=== PATIENT | female | born 1960 | race African-American/Black ===

== ENCOUNTER 2018-08-02 08:21 | Day surgery (SDC) | payer OTHER ==
[2018-07-27 15:57] VITALS: BMI 33.3
--- NOTE | 2018-08-02 08:09 | HP ---
History & Physical Update - History History: No Change - Physical Physical: No Change - Assessment Assessment: No Change - Plan Plan: No Change (No change in HP)
[~2018-08-02 08:21] MED LIST: IBUPROFEN 800 MG/8 ML IJ IVPB PRN
[2018-08-02 09:33] LABS: HEMATOCRIT 38.5 % (32.4-45.2); HEMOGLOBIN 12.4 GM/dL (10.7-15.3); MCH 27.6 pg (25.7-33.7); MCHC 32.2 g/dl (32.0-36.0); MEAN CELL VOLUME 85.7 fl (80-96); MEAN PLT VOLUME 7.8 fl (7.5-11.1); PLATELET COUNT 320 K/MM3 (134-434); RBC 4.49 M/mm3 (3.60-5.2); RDW 13.3 % (11.6-15.6); WHITE BLOOD COUNT 7.5 K/mm3 (4.0-10.0)
[2018-08-02] MEDS ORDERED: ceFAZolin SODIUM 1 GM VIAL IVPB ONE (11:49)
[2018-08-02] MEDS ORDERED: ONDANSETRON 4 MG/2 ML VIAL IVPUSH PRN (12:15)
[2018-08-02] MEDS ORDERED: ONDANSETRON 4 MG/2 ML VIAL ONE (12:53)
--- NOTE | 2018-08-02 13:02 | OP ---
Operative Note - Note: Operative Date: 08/02/18 Pre-Operative Diagnosis: Right dermoid ovarian cyst Operation: Bilateral salpingectomy, Left oopherectomy and exploratory laparotomy Findings: Left dermoid ovarian cyst Post-Operative Diagnosis: Other (Left dermoid ovarian cyst) Surgeon: Dorothy Guerra Drum Builder: Narciso Mayo Anesthesiologist/BANKRUPTCY ATTORNEY: Billy Fajardo Anesthesia: General Estimated Blood Loss (mls): 20 Operative Report Dictated: Yes
--- NOTE | 2018-08-02 13:09 | SURG ---
Surgery Regional Sales Executive Note Regional Sales Executive: Narciso Mayo PA-C Date of Service: 08/02/18 Diagnosis: Left ovarian dermoid cyst Procedure: Bilateral salpingectomy, Left oopherectomy and exploratory laparotomy I was present for the entirety of the operative procedure. For further detail, please refer to operative report. Visit type - Case Type Case Type: Scheduled - Emergency Emergency Visit: No - New patient This patient is new to me today: Yes Date on this admission: 08/02/18 - Critical Care Critical Care patient: No
[2018-08-02] MEDS ORDERED: HYDROmorphone *PCA* 10MG/50ML DISP.SYRIN PCA SCH (13:30)
[2018-08-02] MEDS: LACTATED RINGERS SOLUTION 1,000 ML IV SCH (14:45)
[2018-08-02] MEDS: CEFAZOLIN 2 GM in DEXTROSE 5%-WATER - 100 ML IVPB SCH (17:17)
[2018-08-03] MEDS ORDERED: CEFAZOLIN 2 GM/D5W 2 GM/50 ML ML IVPB SCH (02:00)
--- NOTE | 2018-08-03 08:24 | PN ---
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
[2018-08-03] MEDS: CEFAZOLIN 2 GM in DEXTROSE 5%-WATER - 100 ML IVPB SCH (08:48)
[2018-08-03] MEDS ORDERED: oxyCODONE HCL 5 MG TABLET PO PRN (09:09)
[2018-08-03] MEDS ORDERED: PCA PUMP KEY 1 EACH EACH ONE (09:19)
[2018-08-03] MEDS ORDERED: PATIENT'S OWN MEDICATION (NON-FORMULARY) (Metformin Hcl [Metformin Er Osmotic] 1,000 MG) PO SCH (10:00)
[2018-08-03] MEDS ORDERED: PATIENT'S OWN MEDICATION (NON-FORMULARY) (Canagliflozin [Invokana] 100 MG) PO SCH (10:00)
[2018-08-03] MEDS ORDERED: PNEUMOC 13-VAL CONJ-DIP CRM/PF 0.5 ML DISP.SYRIN IM ONE (10:00)
--- NOTE | 2018-08-03 10:05 | PN ---
Progress Note (short form) - Note Progress Note: 58yo F s/p Lt open oopherectomy POD 1, pt seen and examined at bedside. Pt states that she feels good, very happy to have a flatter stomach. Pt complains of some mild abd pain. Pt has yet to get out of bed and still has muhammad. Pt denies fever, chills, n/v. Pt tolerating PO. Last Vital Signs Temp Pulse Resp BP Pulse Ox 98.3 F 72 20 112/64 97 08/03/18 06:00 08/03/18 06:00 08/03/18 06:00 08/03/18 06:00 08/03/18 02:20 CBC, BMP 08/02/18 09:30 PE: Gen: A&O x3 Resp: breathing comfortably Abd: soft, nondistended, mild lower abd tenderness, dressing clean with no erythema or discharge. 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
[2018-08-03] MEDS: oxyCODONE HCL 5 MG TABLET PO PRN ×2 (12:13→20:01)
[2018-08-03] MEDS: ACETAMINOPHEN 325 MG TABLET (FP) PO SCH ×4 (12:14→22:19)
--- NOTE | 2018-08-03 12:44 | OP ---
DATE OF OPERATION: 08/02/2018 PREOPERATIVE DIAGNOSIS: Right dermoid ovarian cyst. OPERATION: Left salpingo-oophorectomy and a right salpingectomy, exploratory laparotomy. POSTOPERATIVE DIAGNOSIS: Left dermoid cyst. SURGEON: Ladan Guerra MD FREIGHT REPRESENTATIVE: TOM Nation ANESTHESIOLOGIST: Sriram Fajardo. ANESTHESIA: General. ESTIMATED BLOOD LOSS: 20 mL. PROCEDURE: The patient was taken to the operating room and placed in supine position and prepped and draped in the usual sterile fashion. Time-out was performed in accordance with hospital regulation after general anesthesia had been given. Pfannenstiel skin incision was made with a scalpel. Cautery was then used to go through layers of the abdominal wall to the level of the fascia. The fascia was cut in the midline. Cautery was then used to open the fascia in a smiling fashion. Kochers were then used to bluntly and sharply dissect the rectus muscles off the fascia. Muscle was split in the midline. Peritoneal cavity was then entered and carried up and downward. Examination and exploration of the abdomen revealed a left dermoid cyst. Right ovary was noted to be normal and normal bilateral fallopian tubes. The dermoid cyst was exteriorized, and a left salpingo-oophorectomy was then performed. Specimen was handed to Pathology. The LigaSure was then used to perform a right salpingectomy. Cautery and cutting of the fallopian tube was done. Ovary was noted to be normal and left intact. Hemostasis was achieved. Uterus was noted to be normal. Again, a left salpingo-oophorectomy was performed due to the dermoid being on the left side. Abdominal cavity was cleaned with clean lap pads. Peritoneum was closed using 0 Biosyn suture in continuous fashion. Fascia was then closed using 0 Vicryl suture in 2 parts. Muscle was approximated in the midline using 0 Vicryl suture. The skin was then closed using 4-0 Vicryl in subcuticular fashion. The wound was washed and dressed. The patient had tolerated the procedure well and was taken to the recovery room in stable condition. LADAN GUERRA M.D. [id number]
[2018-08-03] MEDS: LACTATED RINGERS SOLUTION 1,000 ML IV SCH (12:45)
[2018-08-03] MEDS ORDERED: PNEUMOCOCCAL 23 VACCINE 0.5 ML VIAL IM ONE (14:15)
--- NOTE | 2018-08-03 17:46 | PATH ---
Surgical Pathology Report Patient Name: SAEED BEASLEY [facility]. Rec. #: [id number] /Age/Gender: 1960 (Age: 58) / F Account: [id number] Location: Taken: 08/02/2018 Received: 08/02/2018 Reported: 08/03/2018 Physicians: Dorothy Guerra M.D. Specimen(s) Received A: LEFT FALLOPIAN TUBE AND OVARY WITH TERATOMA B: RIGHT FALLOPIAN TUBE Clinical History Left dermoid cyst Final Diagnosis A. LEFT FALLOPIAN TUBE AND OVARY WITH TERATOMA, EXCISION: MATURE CYSTIC TERATOMA (DERMOID CYST). PORTION OF FALLOPIAN TUBE WITH NO SIGNIFICANT PATHOLOGIC CHANGE. B. RIGHT PORTION FALLOPIAN TUBE, SALPINGECTOMY: PORTION OF FALLOPIAN TUBE WITH NO SIGNIFICANT PATHOLOGIC CHANGE. Electronically Signed Yesenia Wyman M.D. Gross Description A. Specimen received in formalin, labeled "left fallopian tube and ovary with teratoma", consists of an intact thin-walled (0.2-0.3 cm) lombardo cyst, which measures 15 x 13 x 11cm and weighs 1461grams. The outer surface appears smooth and glistening. On opening the cyst, it is unilocular and contains sebaceous material admixed with fine hairs. Focal thickening up to 1cm of the wall is noted. The inner surface of the cyst is smooth. No papillary excrescences are seen. The attached portion of fallopian tube, which includes a fimbriated end, measures 6.5cm in length and 0.8cm in diameter. On sectioning the fallopian tube appears grossly unremarkable. Charrer sections are submitted in 6 cassettes.1: fallopian tube; 2 to 6: ovarian cyst. B. Received fresh labelled "right portion fallopian tube" is a 5 cm long by 0.5 cm in diameter portion of tissue consistent with a portion of fallopian tube. The fimbriated end is identified. No focal lesions are identified. Charrer sections submitted in one cassette. KWS/08/02/2018 sulki/08/02/2018
[2018-08-04] MEDS: ACETAMINOPHEN 325 MG TABLET (FP) PO SCH ×2 (02:36→09:25)
[2018-08-04] MEDS: oxyCODONE HCL 5 MG TABLET PO PRN ×2 (02:37→09:26)
[2018-08-04 09:14] VITALS: BP 114/63; PULSE 91; TEMP 98.3
--- NOTE | 2018-08-04 10:23 | DS ---
Physical Exam: SUBJECTIVE: Patient seen and examined OBJECTIVE: Vital Signs Temperature 98.3 F 08/04/18 09:00 Pulse Rate 91 H 08/04/18 09:00 Respiratory Rate 18 08/04/18 09:00 Blood Pressure 114/63 08/04/18 09:00 O2 Sat by Pulse Oximetry (%) 97 08/03/18 02:20 PHYSICAL EXAM GENERAL: The patient is awake, alert, and fully oriented, in no acute distress. HEAD: Normal with no signs of trauma. EYES: PERRL, extraocular movements intact, sclera anicteric, conjunctiva clear. ENT: Ears normal, nares patent, oropharynx clear without exudates, moist mucous membranes. NECK: Trachea midline, full range of motion, supple. ABDOMEN: Soft, mild lower abd tenderness, nondistended, no guarding, no rebound , no hepatosplenomegaly, no masses. EXTREMITIES: warm, well-perfused, no edema. NEUROLOGICAL: Cranial nerves II through XII grossly intact. Normal speech, gait not observed. PSYCH: Normal mood, normal affect. SKIN: Warm, dry, normal turgor, no rashes or lesions noted. LABS CBC,CMP WBC 7.5 K/mm3 (4.0-10.0) 08/02/18 09:30 RBC 4.49 M/mm3 (3.60-5.2) 08/02/18 09:30 Hgb 12.4 GM/dL (10.7-15.3) 08/02/18 09:30 Hct 38.5 % (32.4-45.2) 08/02/18 09:30 MCV 85.7 fl (80-96) 08/02/18 09:30 MCH 27.6 pg (25.7-33.7) 08/02/18 09:30 MCHC 32.2 g/dl (32.0-36.0) 08/02/18 09:30 RDW 13.3 % (11.6-15.6) 08/02/18 09:30 Plt Count 320 K/MM3 (134-434) 08/02/18 09:30 MPV 7.8 fl (7.5-11.1) 08/02/18 09:30 POC Glucometer 103 UNITS (80-120) 08/04/18 06:20 Serum , Qual Negative 08/02/18 08:37 HOSPITAL COURSE: 58yo F presented to the hospital for scheduled oopherectomy for presumed dermoid cyst and bilateral salpingectomy. Pt tolerated the procedure without incident with minimal bleeding. Pt was admitted to the floor for pain control and observation. Pt had no acute events in the hospital. Pt is currently well controlled, pt is ambulating and urinating well. Pt will be discharged home with follow up with Dr. Guerra in 1 week. Date of Admission:08/02/18 Date of Discharge: 08/04/18 Minutes to complete discharge: 20 Visit type - Case Type Case Type: Scheduled - Emergency Emergency Visit: No - New patient This patient is new to me today: No - Critical Care Critical Care patient: No
== END 2018-08-04 10:55 | disposition home or self-care (01) ==
LOC: JASUSAT 08:21 → EDSTATUS 10:00 → J3W 15:00 → JASUSAT 08-04 10:55
PROVIDERS: ATTEND Obstetrics & Gynecology
PROC: 0UB74ZZ Excision of Bilateral Fallopian Tubes, Percutaneous Endoscopic Approach (ICD-10-PCS; 2018-08-02)
PROC: 0UB14ZZ Excision of Left Ovary, Percutaneous Endoscopic Approach (ICD-10-PCS; principal; 2018-08-02 10:00)
DX: D27.1 Benign neoplasm of left ovary (principal)
CPT/HCPCS: 36415; 82962; 84703; 85027; 86850; 86900; 86901; 88302-TC; 88307-TC; 90732; 94760; G0009